=== PATIENT | female | born 1975 | race Caucasian/White ===

== ENCOUNTER 2020-12-06 06:33 | Emergency (ER) | payer OTHER ==
[~2020-12-06 06:33] MED LIST: ASPIRIN CHEWABL81 MG PO
[2020-12-06 07:31] LABS: HEMOGLOBIN 12.5 gm/dl (12.3-15.3); RED BLOOD COUNT 4.43 M/UL (4.00-5.10); WHITE BLOOD COUNT 9.2 K/UL (4.5-11.0)
[2020-12-06 07:51] LABS: BUN/CREATININE RATIO 22 (0-10)
[2020-12-06 07:56] LABS: BORDETELLA PARAPERTUSSIS Not Detected (Not Detectd); BORDETELLA PERTUSSIS Not Detected (Not Detectd); CHLAMYDIA PNEUMONIAE Not Detected (Not Detectd); CORONAVIRUS HKU1 Not Detected (Not Detectd); CORONAVIRUS NL63 Not Detected (Not Detectd); CORONAVIRUS OC43 Not Detected (Not Detectd); CORONOAVIRUS 229E Not Detected (Not Detectd); HUMAN METAPNEUMOVIRUS Not Detected (Not Detectd); HUMAN RHINOVIRUS/ENTEROVIRUS Not Detected (Not Detectd); INFLUENZA A Not Detected (Not Detectd); INFLUENZA B Not Detected (Not Detectd); MYCOPLASMA PNEUMONIAE Not Detected (Not Detectd); PARAINFLUENZA VIRUS 1 Not Detected (Not Detectd); PARAINFLUENZA VIRUS 2 Not Detected (Not Detectd); PARAINFLUENZA VIRUS 3 Not Detected (Not Detectd); PARAINFLUENZA VIRUS 4 Not Detected (Not Detectd); RESPIRATORY SYNCYTIAL VIRUS Not Detected (Not Detectd)
[2020-12-06 09:20] LABS: SARS-CoV-2 NOT DETECTED (Not Detectd)
[2020-12-06] MEDS ORDERED: FLONASE 0.05% N16 GM (09:30)
[2020-12-06] MEDS ORDERED: SUDAFED 60 MG T60 MG PO (09:30)
== END 2020-12-06 09:46 | disposition home or self-care (01) ==
LOC: ER1 06:33
PROVIDERS: Student in an Organized Health Care Education/Training Program
DX: J32.9 Chronic sinusitis, unspecified (principal)
CPT/HCPCS: 71045; 80053; 82550; 82553; 83874; 84484; 85025; 87633; 93005; 99284

== ENCOUNTER 2020-12-22 08:05 | Emergency (ER) | payer OTHER ==
[~2020-12-22 08:05] MED LIST changes: +FLONASE 0.05% N16 GM; +SUDAFED 60 MG T60 MG PO
[2020-12-22] MEDS ORDERED: HYDROCODON-ACE1 EAC4 PO (09:09)
== END 2020-12-22 09:27 | disposition home or self-care (01) ==
LOC: ER1 08:05
DX: S22.32XA Fracture of one rib, left side, initial encounter for closed fracture (principal); K59.00 Constipation, unspecified; Z90.710 Acquired absence of both cervix and uterus; W01.10XA Fall on same level from slipping, tripping and stumbling with subsequent striking against unspecified object, initial encounter
CPT/HCPCS: 71111; 99283

== ENCOUNTER 2021-04-21 21:54 | Emergency (ER) | payer SELFPAY ==
[~2021-04-21 21:54] MED LIST changes: +HYDROCODON-ACE1 EAC4 PO
[2021-04-21 23:27] LABS: HEMOGLOBIN 13.7 gm/dl (12.3-15.3); RED BLOOD COUNT 4.81 M/UL (4.00-5.10); WHITE BLOOD COUNT 6.6 K/UL (4.5-11.0)
[2021-04-21 23:53] LABS: BUN/CREATININE RATIO 16 (0-10)
[2021-04-22] MEDS ORDERED: AMOX TR-K CLV1 EAC4 PO (01:01)
[2021-04-22] MEDS ORDERED: ZOFRAN ODT 4 MG4 MG PO (01:01)
== END 2021-04-22 01:12 | disposition home or self-care (01) ==
LOC: ER1 21:54
PROVIDERS: Physician Assistant Medical
DX: K52.9 Noninfective gastroenteritis and colitis, unspecified (principal)
CPT/HCPCS: 80053; 81001; 85025; 99284; Q9967

== ENCOUNTER 2021-11-16 20:01 | Emergency (ER) | payer OTHER ==
[~2021-11-16 20:01] MED LIST changes: +AMOX TR-K CLV1 EAC4 PO; +FLAGYL 250 MG250 MG GT; +PERCOCET 5/325 T1 EA PO; +ZOFRAN ODT 4 MG4 MG PO
[2021-11-16 20:59] LABS: HEMOGLOBIN 13.9 gm/dl (12.3-15.3); RED BLOOD COUNT 4.79 M/UL (4.00-5.10); WHITE BLOOD COUNT 8.4 K/UL (4.5-11.0)
[2021-11-16 21:21] LABS: BUN/CREATININE RATIO 24 (0-10)
[2021-11-16] MEDS ORDERED: AMOX TR-K CLV1 EAC4 PO (22:57)
== END 2021-11-16 23:22 | disposition home or self-care (01) ==
LOC: ER1 20:01
PROVIDERS: Physician Assistant
DX: K52.9 Noninfective gastroenteritis and colitis, unspecified (principal)
CPT/HCPCS: 71045; 80053; 81001; 82550; 82553; 83690; 84484; 85025; 85652; 86140; 87086; 96374; 96375; 99284; J2270; J2405; J2765; Q9967